=== PATIENT | male | born 1955 | race Native Hawaiian/Other Pacific Islander ===

== ENCOUNTER 2021-08-10 20:24 | Emergency (ER) | payer OTHER ==
[~2021-08-10] VITALS: Ht 162.6 cm; Wt 77.1 kg
[2021-08-10 20:25] VITALS: TEMP 97.9
[2021-08-10 21:05] VITALS: BP 130/85
== END 2021-08-10 21:00 | disposition home or self-care (01) ==
LOC: ED 20:24
PROC: 08C8XZZ Extirpation of Matter from Right Cornea, External Approach (ICD-10-PCS; principal; 2021-08-10)
DX: T15.01XA Foreign body in cornea, right eye, initial encounter (principal); X58.XXXA Exposure to other specified factors, initial encounter; Y92.89 Other specified places as the place of occurrence of the external cause
CPT/HCPCS: 99283

== ENCOUNTER 2021-11-25 15:01 | Emergency (ER) | payer OTHER, MEDICARE ==
[~2021-11-25] VITALS: Ht 162.6 cm; Wt 77.1 kg
[2021-11-25 17:22] LABS: PLATELET COUNT 264 K/uL (142-355)
[2021-11-25 17:33] LABS: POTASSIUM 4.9 mmol/L (3.6-5.2); SODIUM 136 mmol/L (136-145)
[2021-11-25 17:44] LABS: PARTIAL THROMBOPLASTIN TIME 24.1 SECONDS (24.5-33.6)
[2021-11-25 20:05] VITALS: BP 124/88; TEMP 98.1
== END 2021-11-25 20:10 | disposition home or self-care (01) ==
LOC: ED 15:01
PROVIDERS: Emergency Medicine
DX: I20.8 Other forms of angina pectoris (principal); R06.02 Shortness of breath
CPT/HCPCS: 80053; 84484; 85027; 85610; 85730; 93005; 99284